=== PATIENT | male | born 1975 ===

== ENCOUNTER 2021-10-14 05:36 | Day surgery (SDC) | payer OTHER ==
[~2021-10-14 05:36] MED LIST: CLONAZEPAM1 MG PO; D3 + K2 DOTS 11 EACH PO; PRILOSEC OTC20 MG PO; RESTORIL30 M1 PO; VITAMIN C100 MG PO; XYZAL5 MG PO
[2021-10-14] MEDS ORDERED: ULTRAM50 MG PO (12:00)
== END 2021-10-14 13:35 | disposition home or self-care (01) ==
LOC: CIR.AMB 05:36
PROVIDERS: ATTEND Surgery
DX: K60.3 Anal fistula (principal); K64.8 Other hemorrhoids

== ENCOUNTER 2022-01-13 06:21 | Day surgery (SDC) | payer OTHER ==
[~2022-01-13] VITALS: Ht 167.6 cm; Wt 102.1 kg
[~2022-01-13 06:21] MED LIST changes: +LIPITOR20 MG PO; +ULTRAM50 MG PO
[2022-01-13] MEDS ORDERED: PERCOCET 5-3251 EACH PO (13:54)
== END 2022-01-13 16:00 | disposition home or self-care (01) ==
LOC: CIR.AMB 06:21
PROVIDERS: ATTEND Surgery
DX: K60.3 Anal fistula (principal); K62.89 Other specified diseases of anus and rectum; K64.8 Other hemorrhoids; Z20.822 Contact with and (suspected) exposure to COVID-19; G43.909 Migraine, unspecified, not intractable, without status migrainosus; F32.A Depression, unspecified; K21.9 Gastro-esophageal reflux disease without esophagitis

== ENCOUNTER 2025-04-17 07:58 | Inpatient (IN) | payer OTHER ==
[~2025-04-17] VITALS: Ht 167.6 cm; Wt 88.5 kg
[2025-04-17 07:44] VITALS: BP 132/78
[~2025-04-17 07:58] MED LIST changes: +AMITRIPTYLINE H25 MG PO; +CLONAZEPAM0.5 MG PO; +LIPITOR40 M1 PO; +PEPCID40 MG PO; +PERCOCET 5-3251 EACH PO
[2025-04-17 08:14] LABS: BASO % 0.7 % (0.1-1.2); EOS # 0.08 (0.04-0.54); EOS % 1.5 % (0.7-7.0); LYMPH # 2.39 (1.18-3.74); LYMPH % 44.4 % (19.3-53.1); MEAN PLATELET VOLUME 10.40 fl (9.4-12.4); MONO # 0.43 (0.24-0.82); MONO % 8.0 % (4.7-12.5); NEUT # 2.43 (1.56-6.13); NEUT % 45.2 % (34.0-71.1); RED CELL DISTRIBUTION WIDTH 12.5 % (11.6-14.4)
[2025-04-17 08:26] LABS: URINE APPEARANCE Clear; URINE BILIRRUBIN Negative (NEGATIVE); URINE BLOOD Negative; URINE COLOR Yellow; URINE GLUCOSE Negative (NEGATIVE); URINE KETONE Trace (NEGATIVE); URINE LEUKOCYTE Negative; URINE NITRATE Negative; URINE PROTEIN Negative (NEGATIVE); URINE UROBILINOGEN 0.2 E.U./dl
[2025-04-17 08:28] LABS: URINE EPITHELIAL CELLS 1.6 uL (0.0-38.8); URINE RBC 6.1 uL (0.0-20.8)
[2025-04-17 08:33] LABS: URINE BACTERIA 2.3 uL (0.0-1933); URINE CAST 0.00 uL (0.0-1.40); URINE WBC 1.5 uL (0.0-23.2)
[2025-04-17 08:34] LABS: BUN CREA RATIO 18.0 (7.0-25.0); CREATININE SERUM 0.82 mg/dL (0.70-1.30); GFR 99.45; GLUCOSE FASTING 89.0 mg/dL (65-100); OSMOLALITY SERUM 287.0 MOSM/KG (275-295)
[2025-04-17 08:38] LABS: COVID-19 AG NEGATIVE (NEGATIVE)
[2025-04-17 08:40] LABS: INR 1.07
[2025-04-17 09:26] LABS: RH POSITIVE
[2025-04-23] MEDS ORDERED: FLONASE16 GM (07:49)
[2025-04-23] MEDS ORDERED: LORAZEPAM2 MG (07:49)
[2025-04-23] MEDS ORDERED: OMEPRAZOLE40 MG (07:49)
[2025-04-23] MEDS ORDERED: AMITRIPTYLINE H75 MG (07:49)
[2025-04-23] MEDS ORDERED: ESTAZOLAM2 MG (07:49)
[2025-04-23] MEDS ORDERED: FLUOXETINE HCL20 MG (07:49)
[2025-04-23] MEDS ORDERED: SUCRALFATE1 GM (07:49)
[2025-04-23] MEDS ORDERED: HEMOSTATIC MATRIX 1 KIT KIT TOP ONE (10:00)
[2025-04-23] MEDS ORDERED: SUGAMMADEX SODIUM 200 MG/2 ML VIAL IV ONE (10:00)
[2025-04-23] MEDS ORDERED: CEFAZOLIN SODIUM 1,000 MG VIAL IV ONE (10:00)
[2025-04-23] MEDS ORDERED: ENOXAPARIN SODIUM 40 MG/0.4 ML SYRINGE SUBCUTANEO ONE (10:00)
[2025-04-23] MEDS ORDERED: RINGERS SOLUTION,LACTATED 1,000 ML IV SCH (11:15)
[2025-04-23] MEDS ORDERED: MORPHINE SULFATE 4 MG/ML CARTRIDGE IV PRN (11:15)
[2025-04-23] MEDS ORDERED: ONDANSETRON HCL 2 MG/ML VIAL IV PRN (11:15)
[2025-04-23] MEDS ORDERED: MORPHINE SULFATE 4 MG/ML VIAL IV ONE (12:10)
[2025-04-23 16:00] VITALS: BP 130/73; O2SAT 97
[2025-04-23] MEDS ORDERED: CLONAZEPAM 0.5 MG TABLET PO SCH (17:00)
[2025-04-23] MEDS ORDERED: GABAPENTIN 300 MG CAPSULE PO SCH (17:00)
[2025-04-23] MEDS ORDERED: AMITRIPTYLINE HCL 25 MG TABLET PO SCH (21:00)
[2025-04-23] MEDS ORDERED: TEMAZEPAM 15 MG CAPSULE PO SCH (21:00)
[2025-04-23] MEDS ORDERED: FAMOTIDINE/PF 20 MG/2 ML VIAL IV SCH (21:00)
[2025-04-23] MEDS ORDERED: CEFAZOLIN SODIUM 1,000 MG VIAL IV SCH (21:00)
[2025-04-24 02:32] VITALS: BP 124/75; O2SAT 97
[2025-04-24 06:12] LABS: BASO % 0.2 % (0.1-1.2); EOS # 0.00 (0.04-0.54); EOS % 0.0 % (0.7-7.0); LYMPH # 2.21 (1.18-3.74); LYMPH % 22.2 % (19.3-53.1); MEAN PLATELET VOLUME 10.20 fl (9.4-12.4); MONO # 0.78 (0.24-0.82); MONO % 7.8 % (4.7-12.5); NEUT # 6.91 (1.56-6.13); NEUT % 69.5 % (34.0-71.1); RED CELL DISTRIBUTION WIDTH 12.3 % (11.6-14.4)
[2025-04-24 07:00] LABS: BUN CREA RATIO 14.0 (7.0-25.0); CREATININE SERUM 0.71 mg/dL (0.70-1.30); GFR 117.43; GLUCOSE FASTING 95.0 mg/dL (65-100); OSMOLALITY SERUM 284.0 MOSM/KG (275-295)
[2025-04-24 08:00] VITALS: BP 120/71; O2SAT 95
[2025-04-24] MEDS ORDERED: ENOXAPARIN SODIUM 40 MG/0.4 ML SYRINGE SUBCUTANEO SCH (09:00)
== END 2025-04-24 10:52 | disposition home or self-care (01) | DRG 708 ==
LOC: O/R 04-23 05:28 → SURH 04-23 05:28
PROVIDERS: ADMIT Urology; ATTEND Urology
PROC: 8E0W4CZ Robotic Assisted Procedure of Trunk Region, Percutaneous Endoscopic Approach (ICD-10-PCS; 2025-04-23)
PROC: 0VT04ZZ Resection of Prostate, Percutaneous Endoscopic Approach (ICD-10-PCS; principal; 2025-04-23 12:30)
DX: C61 Malignant neoplasm of prostate (principal)
CPT/HCPCS: 55866; S2900